=== PATIENT | male | born 1945 | race Caucasian/White ===

== ENCOUNTER → 2018-12-05 11:00 | Outpatient (CLI) | payer MEDICARE, OTHER, SELFPAY ==
--- NOTE | 2018-12-05 | DI.MRI.S_ITS ---
PROCEDURE: MR LUMBAR SPINE WO CON INDICATIONS: LUMBAR SPINE PAIN TECHNIQUE: Noncontrast sagittal T1 spin echo and T2 fast echo, sagittal STIR, axial T1 and T2 fast spin echo through the lumbar spine. In cases with scoliosis, additional coronal T2 fast spin echo may be performed. COMPARISON: [facility] [place], CR, XR LUMBAR SPINE 2 OR 3 VIEWS, 11/22/2018, 11:50. FINDINGS: Image quality: Excellent. Alignment and Curvature: There is normal bony alignment. 5 lumbar diverticulitis are present by plain film. Bone Marrow: Marrow is of normal overall signal. No acute vertebral body compression fractures. There is mild reactive signal within the endplates adjacent to the L3-L4 and L4-L5 intervertebral discs. Spinal Cord: Conus medullaris terminates at the L1-L2 disc space level. Visualized cord demonstrates normal signal and size. Paraspinous Soft Tissues: No paravertebral masses. L1-L2: Normal appearance. L2-L3: Mild disc desiccation and diffuse disc bulge. Mild bilateral facet and ligament flavum hypertrophy. Mild epidural lipomatosis. Mild canal stenosis. Mild bilateral foraminal stenosis. L3-L4: Mild disc desiccation and diffuse disc bulge. Mild bilateral facet and ligamentum flavum hypertrophy. Mild epidural lipomatosis. Mild canal stenosis. Mild foraminal stenosis bilaterally. L4-L5: Moderate disc desiccation. Mild diffuse disc bulge. Moderate bilateral facet and ligamentum flavum hypertrophy. Mild epidural lipomatosis. Moderate canal stenosis. Mild foraminal stenosis bilaterally. L5-S1: Moderate disc height loss and desiccation. Mild diffuse disc bulge. Small central annular tear. Moderate bilateral facet hypertrophy. Moderate canal stenosis. Mild bilateral foraminal stenosis. IMPRESSION: 1.Multilevel degenerative disc and facet disease, as well as ligamentum flavum hypertrophy and epidural lipomatosis. 2. Multilevel canal stenoses, worst at L4-L5, where there is moderate canal stenosis present. 3. Multilevel mild foraminal stenoses. 4. No neural impingement. Dictated by: Lubna Coleman M.D. on 12/05/2018 at 13:34 Approved by: Lubna Coleman M.D. on 12/05/2018 at 13:37
== END ==
PROVIDERS: PCP Family Medicine; Visit Provider Orthopaedic Surgery Orthopaedic Surgery of the Spine
DX: M54.5 Low back pain (principal); M51.36 Other intervertebral disc degeneration, lumbar region; M48.061 Spinal stenosis, lumbar region without neurogenic claudication; M51.37 Other intervertebral disc degeneration, lumbosacral region; M48.07 Spinal stenosis, lumbosacral region; E88.2 Lipomatosis, not elsewhere classified
CPT/HCPCS: 72148

== ENCOUNTER → 2020-05-17 11:18 | Outpatient (CLI) | payer MEDICARE, OTHER, SELFPAY ==
[2020-05-18 09:01] LABS: COVID19 Sendout Not Detected (Not Detect)
== END ==
PROVIDERS: PCP Family Medicine; Visit Provider Physician Assistant
DX: Z01.812 Encounter for preprocedural laboratory examination (principal)
CPT/HCPCS: 87635

== ENCOUNTER 2020-05-20 13:30 | Day surgery (SDC) | payer MEDICARE, OTHER, SELFPAY ==
[2020-05-15 07:41] VITALS: BMI 37.5
[2020-05-20] VITALS (10 sets, daily range): BP systolic 139–170; BP diastolic 75–96; PULSE 74–87; RESP 12–20; TEMP 36.2–36.7; O2SAT 87–98; BMI 37.5
--- NOTE | 2020-05-20 | DI.RAD.S_ITS ---
PROCEDURE: XR LUMBAR SPINE 2-3V INDICATIONS: L4-5 LAMINECTOMY TECHNIQUE: 2 views of the lumbar spine were acquired. COMPARISON: [facility] [place], CR, XR LUMBAR SPINE 2 OR 3 VIEWS, 10/04/2019, 14:32. FINDINGS: Bones: Intraoperative localizer posterior right of the L4-L5 disc. Soft tissues: Overlying bowel gas pattern is normal. IMPRESSION: Intraoperative localizer the level of the L4-L5 disc. Dictated by: Shanda Sanchez MD, PhD on 05/20/2020 at 16:50 Approved by: Shanda Sanchez MD, PhD on 05/20/2020 at 16:51
--- NOTE | 2020-05-20 15:28 | PM.PREOP ---
Pre-operative Note COVID-19 COVID-19 status: Negative Result date/Date tested (Pos, Neg/Pending): 05/18/20 Interval Note History & Physical reviewed/Exam performed by Physician: Yes Changes to H&P: No
[2020-05-20] MEDS: CEFAZOLIN 2 GM/100 ML FROZ.PIGGY IV (15:58)
--- NOTE | 2020-05-20 16:26 | SUR.OPER ---
Prone on spine table, head in foam head support, padded chest and pelvic supports, gel pad at knees, lower legs supported by pillows; nipples, genitalia and toes free of pressure, arms secured on foam padded arm boards at <90 degrees abduction. Tape over blanket at thigh secured to table.
[2020-05-20] MEDS: BUPIVACAINE 0.25% W/ EPI 30 ML VIAL INJ (16:32)
[2020-05-20] MEDS: methylPREDNISolone acet DEPO 40 MG/ML VIAL INJ (16:35)
--- NOTE | 2020-05-20 16:51 | SUR.OPER ---
DIME SIZE SORE LEFT INNER THIGH.
--- NOTE | 2020-05-20 16:53 | P.OP_ITS ---
Operative Date/Time/Diagnoses Date of procedure: 05/20/20 Time of procedure: 15:21 Pre-op diagnosis: 1. L4-5 spinal stenosis with radiculopathy 2. L4-5 epidural lipomatosis Post-op diagnosis: same Procedure & Clinicians Procedure: 1. L4-5 laminectomy with bilateral partial facetecomies Same procedure as scheduled: Yes Indications: Patient has been having chronic back pain and worsening lumbar radiculopathy. Patient has persisting right pain makes walking difficult. Patient failed multiple conservative management with worsening pain weakness and numbness in his lower extremity. Patient has been having difficulty performing activity of daily living. After discussing risks benefits of treatment options, patient elected proceed with surgery. Surgeon: Luis Mendes Inspector [employer]: Reji Garcia Click Yes if Unassisted: No Anesthesia Type: General Operative Notes Closure Type: primary Specimen(s): none sent Estimated Blood Loss (mL): 5 Blood products transfused: none Procedure in detail: Patient was seen in the preoperative area. Risks and benefits of the surgery was discussed with the patient. Informed consent was obtained from the patient and placed in the chart. Surgical site was marked. Patient was taken to the operative room. General anesthesia was administered. Prophylactic antibiotic was given to the patient less than 30 min before the incision was made. Patient was placed into a prone position on the [place] table. Patient's back was then prepped and draped in the sterile fashion. Time- out was performed at this time. Using AP and lateral C-arm imaging the interval between L4-5 was identified and marked on patient's back. A 1 inch incision 1 in from midline was made on the right side. The fascia was incised in line with skin incision. Globus MARS retractors was placed inside the incision and docked onto the L4 lamina. Using microsurgical technique and operating microscope, a L4 laminectomy was performed using a Kerrison rongeur. Liagamentum flavum was resected at the site of the laminotomy. Either side of the dura was exposed. Bilateral partial facetcomies was performed to further decompress the lateral recess. Patient was found to have significant amount of epidural lipomatosis in patient's epidural space. The lipomatosis was resected using combination of pituitary and Kerrison rongeur. Full decompression was completed after the lipomatosis was removed from the epidural space. After the laminectomy was completed, the area medial lateral superior and inferior to the area of the laminectomy was inspected and explored using a micro curette. No other impinging structure was identified. The wound was then irrigated with sterile normal saline. 40 mg Depo-Medrol was placed into the epidural space. The deep fascia was closed with 1-0 Vicryl. The subcutaneous tissue was closed with 2-0 Vicryl. The skin was closed with skin shayla. Patient tolerated the procedure well. There were no complications. Patient was transferred recovery room in stable condition. Complications: none Post-operative Condition: stable Disposition: same day surgery Plan for aftercare: Discharge to home
--- NOTE | 2020-05-20 17:13 | SUR.PHASEI ---
Upon admit HR irregular, multiple PACs. Dr. Alatorre at bedside. No new orders.
--- NOTE | 2020-05-20 17:19 | SUR.PHASEI ---
Report given to Roxanne
[2020-05-20] MEDS: fentaNYL 100 MCG/2 ML INJ IV (17:22)
[2020-05-20] MEDS: OXYCODONE/ACETAMINOPHEN 5/325 TABLET 1 TAB PO (17:30)
--- NOTE | 2020-05-20 18:13 | SUR.PHASEII ---
All discharge instructions reviewed with and patient. V/U. VSS. Dressing to lower lumbar area clean, dry and intact. Patient denies numbness or tingling. GCS 15. Prescription for Hydrocodone given to . All belongings returned to patient. Stable at discharge.
== END 2020-05-20 18:40 | disposition home or self-care (01) ==
PROVIDERS: PCP Family Medicine; Referring Provider Orthopaedic Surgery Orthopaedic Surgery of the Spine; Visit Provider Orthopaedic Surgery Orthopaedic Surgery of the Spine
PROC: (CPT 63047; principal; 2020-05-20 15:15)
DX: M48.061 Spinal stenosis, lumbar region without neurogenic claudication (principal); M54.16 Radiculopathy, lumbar region; E88.2 Lipomatosis, not elsewhere classified
CPT/HCPCS: 63047; 72100; 76000; J0690; J1030; J1100; J2405; J2704; J3010

== ENCOUNTER → 2020-06-13 13:32 | Outpatient (CLI) | payer MEDICARE, OTHER, SELFPAY ==
--- NOTE | 2020-06-13 | DI.US.S_ITS ---
PROCEDURE: US PERIPH VENOUS LOW EXTREM RT INDICATIONS: LEG SWELLING FOOT AND CALF TECHNIQUE: Real-time imaging, as well as color and pulse Doppler interrogation, were performed of the lower extremity deep veins from the inguinal ligament to the popliteal fossa. COMPARISON: None. FINDINGS: There is extensive occlusive deep venous thrombosis, which involves the mid and distal femoral vein as well as the popliteal vein. IMPRESSION: Extensive right lower extremity deep venous thrombosis. Note: Concordant preliminary findings given by the employee relations director upon the completion of the examination to Dr. Mendes at 2:19 p.m. on June 13, 2020. Dictated by: Juan Jose Hendrix M.D. on 06/13/2020 at 13:35 Approved by: Juan Jose Hendrix M.D. on 06/13/2020 at 13:36
== END ==
PROVIDERS: PCP Family Medicine; Referring Provider Family Medicine; Visit Provider Orthopaedic Surgery Orthopaedic Surgery of the Spine
DX: I82.411 Acute embolism and thrombosis of right femoral vein (principal); I82.431 Acute embolism and thrombosis of right popliteal vein; M79.89 Other specified soft tissue disorders
CPT/HCPCS: 93971